=== PATIENT | female | born 1970 | race Caucasian/White ===

== ENCOUNTER 2018-03-12 01:59 | Emergency (ER) | payer OTHER ==
[~2018-03-12] VITALS: Ht 162.6 cm; Wt 70.0 kg
[~2018-03-12 01:59] MED LIST: MULT-658 PO
[2018-03-12 03:12] LABS: BASOPHILS # (AUTO) 0.07 x10^3/uL (0-0.1); BASOPHILS % (AUTO) 1 % (0-1); EOSINOPHILS # (AUTO) 0.29 x10^3/uL (0-0.4); EOSINOPHILS % (AUTO) 6 % (1-7); LYMPHOCYTES # (AUTO) 1.57 x10^3/uL (1-3.4); LYMPHOCYTES % (AUTO) 32 % (22-44); MD NO; MEAN CORPUSCULAR HEMOGLOBIN 28.8 pg (27.0-34.8); MEAN CORPUSCULAR HGB CONC 33.4 g/dL (32.4-35.8); MEAN CORPUSCULAR VOLUME 86.4 fL (80-100); MEAN PLATELET VOLUME 9.6 fL (7.4-10.4); MONOCYTES # (AUTO) 0.48 x10^3/uL (0.2-0.8); MONOCYTES % (AUTO) 10 % (2-9); NEUTROPHILS # (AUTO) 2.54 x10^3/uL (1.8-6.8); NEUTROPHILS % (AUTO) 51 % (42-75); PLATELET COUNT 211 x10^3/uL (130-400); RED BLOOD COUNT 4.57 x10^6/uL (3.82-5.3)
[2018-03-12 03:15] LABS: HCG UR SG 1.032 (1.003-1.030)
[2018-03-12 03:17] LABS: MICROSCOPIC INDICATED
[2018-03-12 03:23] LABS: ALANINE AMINOTRANSFERASE 17 U/L (12-78); ALBUMIN 3.7 g/dL (3.4-5.0); ANION GAP 6 mmol/L (5-15); CALCIUM 8.9 mg/dL (8.5-10.1); CHLORIDE 113 mmol/L (98-107); CREATININE 0.72 mg/dL (0.55-1.02)
[2018-03-12 03:25] LABS: ALKALINE PHOSPHATASE 104 U/L (45-117); BILIRUBIN,TOTAL 0.3 mg/dL (0.2-1.0); TOTAL PROTEIN 6.6 g/dL (6.4-8.2)
[2018-03-12 03:31] LABS: CULTURE INDICATED? NO
[2018-03-12 04:54] VITALS: BP 101/62
== END 2018-03-12 04:57 | disposition home or self-care (01) ==
LOC: ED 04:51
DX: R10.32 Left lower quadrant pain (principal); R31.9 Hematuria, unspecified; R11.0 Nausea; Z90.49 Acquired absence of other specified parts of digestive tract
CPT/HCPCS: 36415; 74176; 76830; 80053; 81001; 81025; 85025; 99285

== ENCOUNTER 2019-09-16 21:21 | Inpatient (IN) | payer BC, OTHER ==
[~2019-09-16] VITALS: Ht 162.6 cm; Wt 81.5 kg
[2019-09-16] MEDS ORDERED: KETOROLAC 30 MG/1 ML IM ONE (21:30)
--- NOTE | 2019-09-16 22:48 | NUR ---
pt to room from lobby
[2019-09-16] MEDS ORDERED: KETOROLAC 60 MG/2 ML ONE (22:50)
[2019-09-16] MEDS ORDERED: HYDROmorphone 1 MG/ML, 1ML INJ IM ONE (23:00)
[2019-09-16] MEDS ORDERED: HYDROmorphone 1 MG/ML, 1ML INJ ONE ×2 (23:00→23:51)
--- NOTE | 2019-09-16 23:20 | NUR ---
Patient presents to ER with low back pain radiating to low abd. Patient states she was helping move dressers today. Afterward, she took a bath and slipped, but did not actually fall, then experienced sudden pain. Patient is in obvious pain. Respirations even and unlabored. Medication admin per oct.
--- NOTE | 2019-09-16 23:28 | NUR ---
Medications admin per oct. MRI checklist completed and faxed.
--- NOTE | 2019-09-16 23:44 | NUR ---
Patient states pain decreased from a 10/10 to an 8/10.
--- NOTE | 2019-09-17 00:22 | NUR ---
Patient to MRI
[2019-09-17] MEDS ORDERED: HYDROmorphone 1 MG/ML, 1ML INJ IV ONE ×4 (01:30→07:00)
[2019-09-17] MEDS ORDERED: methylPREDNISolone SOD SUCC 125 MG/2 ML IVPush SCH (02:00)
[2019-09-17 02:02] LABS: BASOPHILS # (AUTO) 0.04 x10^3/uL (0-0.1); BASOPHILS % (AUTO) 1 % (0-1); EOSINOPHILS # (AUTO) 0.02 x10^3/uL (0-0.4); EOSINOPHILS % (AUTO) 0 % (1-7); LYMPHOCYTES # (AUTO) 1.11 x10^3/uL (1-3.4); LYMPHOCYTES % (AUTO) 15 % (22-44); MD NO; MEAN CORPUSCULAR HEMOGLOBIN 29.3 pg (27.0-34.8); MEAN CORPUSCULAR HGB CONC 33.5 g/dL (32.4-35.8); MEAN CORPUSCULAR VOLUME 87.5 fL (80-100); MEAN PLATELET VOLUME 9.2 fL (7.4-10.4); MONOCYTES # (AUTO) 0.46 x10^3/uL (0.2-0.8); MONOCYTES % (AUTO) 6 % (2-9); NEUTROPHILS # (AUTO) 5.78 x10^3/uL (1.8-6.8); NEUTROPHILS % (AUTO) 78 % (42-75); PLATELET COUNT 216 x10^3/uL (130-400); RED BLOOD COUNT 4.58 x10^6/uL (3.82-5.3); RED CELL DISTRIBUTION WIDTH 14.3 % (9.6-15.2)
[2019-09-17] MEDS ORDERED: HYDROmorphone 1 MG/ML, 1ML INJ ONE ×3 (02:04→09:06)
[2019-09-17] MEDS ORDERED: methylPREDNISolone SOD SUCC 125 MG/2 ML ONE (02:07)
[2019-09-17 02:13] LABS: ANION GAP 5 mmol/L (5-15); CHLORIDE 114 mmol/L (98-107); CREATININE 0.76 mg/dL (0.55-1.02)
--- NOTE | 2019-09-17 02:30 | NUR ---
Patient resting in [facility] with no complaints.
--- NOTE | 2019-09-17 03:40 | NUR ---
Patient sleeping in [facility].
--- NOTE | 2019-09-17 03:40 | NUR ---
Medical bed requested
--- NOTE | 2019-09-17 03:56 | NUR ---
Ice bag given to patient.
--- NOTE | 2019-09-17 07:00 | NUR ---
SBAR RPT REC'D AND PT CARE ASSUMED.
--- NOTE | 2019-09-17 07:46 | NUR ---
PT PAIN 04/06, VSS. DISCUSSED PT ASSESSMENT WITH DR MEADOWS AND HE WILL SEE PT NEXT. PT INFORMED. WATER AT BEDSIDE, CALL LIGHT W/I REACH
--- NOTE | 2019-09-17 08:25 | NUR ---
DR MEADOWS AT BEDSIDE.
[2019-09-17] MEDS ORDERED: POLYETHYLENE GLYCOL 17 GM PACKET PO PRN (08:30)
[2019-09-17] MEDS ORDERED: ACETAMINOPHEN 325 MG TABLET PO PRN (08:30)
[2019-09-17] MEDS ORDERED: hydrALAzine 20 MG/ML, 1ML IVPush PRN (08:30)
[2019-09-17] MEDS ORDERED: BISACODYL 10 MG SUPP PR PRN (08:30)
[2019-09-17] MEDS ORDERED: DOCUSATE 100 MG CAPSULE PO PRN (08:30)
[2019-09-17] MEDS ORDERED: ONDANSETRON 2MG/ML, 2ML IVPush PRN (08:30)
[2019-09-17] MEDS ORDERED: PROMETHAZINE 25 MG/ML, 1ML IM PRN (08:30)
[2019-09-17] MEDS ORDERED: ONDANSETRON ODT 4 MG PO PRN (08:30)
[2019-09-17] MEDS ORDERED: KETOROLAC 30 MG/1 ML IV PRN (08:30)
[2019-09-17] MEDS ORDERED: MEDROL 4MG DOSEPAK PO SCH (09:00)
[2019-09-17] MEDS ORDERED: DOCUSATE 100 MG CAPSULE ONE (09:06)
[2019-09-17] MEDS ORDERED: HEPARIN 5,000 UNITS/ML, 1ML ONE (09:06)
[2019-09-17] MEDS ORDERED: METHOCARBAMOL 500 MG TABLET ONE (09:06)
[2019-09-17] MEDS: HEPARIN 5,000 UNITS/ML, 1ML SQ SCH ×2 (09:26→16:46)
[2019-09-17] MEDS: METHOCARBAMOL 500 MG TABLET PO PRN ×2 (09:26→17:26)
[2019-09-17] MEDS: SODIUM CHLORIDE 0.9% 1,000 ML IV SCH ×2 (09:29→20:41)
--- NOTE | 2019-09-17 10:01 | NUR ---
REPROT RECIEVED FROM CLEVE RAMIREZ. ASSUMED CARE OF PT.
--- NOTE | 2019-09-17 10:04 | NUR ---
LATE ENTRY FOR 929, PT MOVED ONTO HOSPITAL BED WITH RN ASSIST. MED NOTED FOR PAIN. ADMIT POC REVIEWED AND QUESTIONS ANSWERED. ADDITIONAL ICE PACKS PROVIDED. VSS. IVF INFUSING W/O DIFFICULTY PER ORDERS. CALL LIGHT W/I REACH, PTS AT BEDSIDE.
[2019-09-17 10:09] LABS: FREE T4 (FREE THYROXINE) 0.99 ng/dL (0.76-1.46)
[2019-09-17] MEDS: GABAPENTIN 100 MG CAPSULE PO SCH ×3 (10:28→20:35)
[2019-09-17] MEDS ORDERED: HYDROmorphone 2 MG/ML, 1ML ONE (11:42)
[2019-09-17] MEDS: HYDROmorphone 2 MG/ML, 1ML IVPush PRN ×2 (11:52→16:44)
--- NOTE | 2019-09-17 11:52 | NUR ---
PT ASSISTED TO BEDSIDE COMMODE. PT ABLE TO TRANSFER SELF FROM BED TO COMMODE. PT AO X 4. SKIN PWD. RESP EVEN AND UNLABORED. PT MEDICATED ORDERED FOR 02/04 PAIN. PT AWARE WE ARE WAITING FOR ADMISSION. PT DENIES OTHER NEEDS AT THIS TIME. PT ON CONT BP, CARDIAC AND O2 MONITORS. CALL LIGHT WITHIN REACH. WILL CONT TO MONITOR PT.
--- NOTE | 2019-09-17 12:26 | NUR ---
REPORT TO CLEVE DEVI WHO ASSUMED CARE OF PT.
--- NOTE | 2019-09-17 12:37 | NUR ---
Patient is resting comfortably in bed. Vital Signs within normal limits.
[2019-09-17] MEDS ORDERED: KETOROLAC 30 MG/1 ML ONE (13:49)
[2019-09-17] MEDS ORDERED: ACETAMINOPHEN 325 MG TABLET ONE (13:49)
--- NOTE | 2019-09-17 14:00 | NUR ---
PT REPORT ROBERTA POON
[2019-09-17 14:50] VITALS: BP 117/79
[2019-09-17 19:34] LABS: MICROSCOPIC NOT IND
[2019-09-17 19:36] LABS: CULTURE INDICATED? NO
[2019-09-17 20:14] VITALS: BP 101/67
[2019-09-17] MEDS: KETOROLAC 30 MG/1 ML IVPush PRN (22:53)
[2019-09-18] MEDS: HEPARIN 5,000 UNITS/ML, 1ML SQ SCH ×3 (00:30→15:01)
[2019-09-18 01:39] VITALS: BP 100/65
[2019-09-18] MEDS: HYDROmorphone 2 MG/ML, 1ML IVPush PRN ×3 (04:48→20:02)
[2019-09-18 05:46] LABS: BASOPHILS # (AUTO) 0.03 x10^3/uL (0-0.1); BASOPHILS % (AUTO) 0 % (0-1); EOSINOPHILS # (AUTO) 0.02 x10^3/uL (0-0.4); EOSINOPHILS % (AUTO) 0 % (1-7); LYMPHOCYTES # (AUTO) 1.56 x10^3/uL (1-3.4); LYMPHOCYTES % (AUTO) 17 % (22-44); MD NO; MEAN CORPUSCULAR HEMOGLOBIN 29.4 pg (27.0-34.8); MEAN CORPUSCULAR HGB CONC 33.3 g/dL (32.4-35.8); MEAN CORPUSCULAR VOLUME 88.2 fL (80-100); MEAN PLATELET VOLUME 9.3 fL (7.4-10.4); MONOCYTES # (AUTO) 0.62 x10^3/uL (0.2-0.8); MONOCYTES % (AUTO) 7 % (2-9); NEUTROPHILS # (AUTO) 6.81 x10^3/uL (1.8-6.8); NEUTROPHILS % (AUTO) 75 % (42-75); PLATELET COUNT 198 x10^3/uL (130-400); RED BLOOD COUNT 4.32 x10^6/uL (3.82-5.3); RED CELL DISTRIBUTION WIDTH 13.9 % (9.6-15.2)
[2019-09-18 05:51] LABS: ALANINE AMINOTRANSFERASE 22 U/L (12-78); ANION GAP 6 mmol/L (5-15); CALCIUM 8.2 mg/dL (8.5-10.1); CHLORIDE 113 mmol/L (98-107); CHOLESTEROL, TOTAL 186 mg/dL (140-239); CREATININE 0.61 mg/dL (0.55-1.02)
[2019-09-18 05:53] LABS: ALKALINE PHOSPHATASE 82 U/L (45-117); BILIRUBIN,TOTAL 0.4 mg/dL (0.2-1.0); CHOL/HDL RATIO 4.9; HDL CHOLESTEROL (DIRECT) 38 mg/dL (40-60); TRIGLYCERIDES 237 mg/dL (50-200); VLDL CHOLESTEROL 47 mg/dL (0-25)
[2019-09-18 05:54] LABS: HDL CHOL % 20 % (28-40); LDL CHOLESTEROL,CALCULATED 101 mg/dL (54-169); LDL/HDL RATIO 2.7 (0.5-3.0)
[2019-09-18 07:14] VITALS: BP 111/74
[2019-09-18] MEDS: GABAPENTIN 100 MG CAPSULE PO SCH ×2 (07:43→15:00)
[2019-09-18] MEDS: KETOROLAC 30 MG/1 ML IVPush PRN ×2 (07:51→15:01)
[2019-09-18] MEDS ORDERED: ERGOCALCIFEROL 50,000 UNIT CAPSULE PO SCH (09:00)
[2019-09-18] MEDS: METHOCARBAMOL 500 MG TABLET PO PRN (15:01)
[2019-09-18 15:15] VITALS: BP 127/79
[2019-09-18] MEDS: GABAPENTIN 400 MG CAPSULE PO SCH ×2 (16:00→20:02)
[2019-09-18 19:33] VITALS: BP 121/75
[2019-09-19] MEDS: HEPARIN 5,000 UNITS/ML, 1ML SQ SCH ×3 (00:05→16:30)
[2019-09-19] MEDS: METHOCARBAMOL 500 MG TABLET PO PRN (00:45)
[2019-09-19 00:49] VITALS: BP 113/79
[2019-09-19] MEDS: KETOROLAC 30 MG/1 ML IVPush PRN ×3 (03:32→16:52)
[2019-09-19 06:41] VITALS: BP 129/83
[2019-09-19] MEDS: HYDROmorphone 2 MG/ML, 1ML IVPush PRN ×3 (08:14→19:00)
[2019-09-19] MEDS: GABAPENTIN 300 MG CAPSULE PO SCH ×3 (08:15→21:07)
[2019-09-19 12:31] VITALS: BP 112/75
[2019-09-19 16:36] LABS: INTERNATIONAL NORMALIZED RATIO 0.94 (0.93-1.1)
[2019-09-19] MEDS ORDERED: LORazepam 0.5MG TABLET PO PRN (17:30)
[2019-09-19] MEDS ORDERED: MECLIZINE 25 MG TABLET PO PRN (17:30)
[2019-09-19 18:50] VITALS: BP 113/74
[2019-09-20] MEDS: HEPARIN 5,000 UNITS/ML, 1ML SQ SCH ×4 (00:30→21:28)
[2019-09-20 01:13] VITALS: BP 118/66
[2019-09-20] MEDS: HYDROmorphone 2 MG/ML, 1ML IVPush PRN ×6 (02:11→19:56)
[2019-09-20] MEDS ORDERED: VANCOMYCIN PMX 1GM/200ML 200 ML IV ONE (07:00)
[2019-09-20 07:31] VITALS: BP 143/82
[2019-09-20] MEDS: GABAPENTIN 300 MG CAPSULE PO SCH ×3 (08:41→21:54)
[2019-09-20 15:14] VITALS: BP 126/84
[2019-09-20] MEDS ORDERED: BUPIVACAINE/PF 0.5% ONE (15:50)
[2019-09-20] MEDS ORDERED: BACITRACIN 50,000 UNIT ONE (15:50)
[2019-09-20] MEDS ORDERED: EPINEPHRINE 1 MG/ML, 1ML ONE (15:50)
[2019-09-20] MEDS ORDERED: MIDAZOLAM 1 MG/ML, 2ML ONE (16:51)
[2019-09-20] MEDS ORDERED: FENTANYL PF 250 MCG/5ML ONE (16:52)
[2019-09-20] MEDS ORDERED: ROCURONIUM 10MG/ML,5ML ONE (16:56)
[2019-09-20] MEDS ORDERED: PROMETHAZINE 25 MG/ML, 1ML IV PRN (17:00)
[2019-09-20] MEDS ORDERED: hydrALAzine 20 MG/ML, 1ML IV PRN (17:00)
[2019-09-20] MEDS ORDERED: LABETALOL 5MG/ML, 20ML IV PRN (17:00)
[2019-09-20] MEDS ORDERED: MEPERIDINE/PF 25MG/ML,1ML IVPush PRN (17:00)
[2019-09-20] MEDS ORDERED: HALOPERIDOL 5 MG/ML IV PRN (17:00)
[2019-09-20] MEDS ORDERED: FENTANYL PF 100 MCG/2ML IV PRN (17:00)
[2019-09-20] MEDS ORDERED: OXYcodone 5 MG/5 ML ORAL.SOL UDC PO PRN (17:00)
[2019-09-20] MEDS ORDERED: ONDANSETRON 2MG/ML, 2ML ONE (19:07)
[2019-09-20] MEDS ORDERED: PROPOFOL 10 MG/ML, 20ML ONE (19:07)
[2019-09-20] MEDS ORDERED: DEXAMETHASONE 4 MG/ML, 1ML ONE ×2 (19:08)
[2019-09-20] MEDS ORDERED: SUGAMMADEX 200 MG/2 ML IVPush ONE (19:08)
[2019-09-20] MEDS ORDERED: SUCCINYLCHOLINE 20 MG/ML, 10ML ONE (19:08)
[2019-09-20] MEDS ORDERED: HYDROmorphone 1 MG/ML, 1ML INJ ONE (19:41)
[2019-09-20] MEDS ORDERED: MEPERIDINE/PF 25MG/ML,1ML ONE (19:48)
[2019-09-20] MEDS ORDERED: OXYcodone 5 MG/5 ML ORAL.SOL UDC ONE (20:06)
[2019-09-20] MEDS ORDERED: METHOCARBAMOL 1,000 MG in DEXTROSE 5% 100 ML IV ONE (20:30)
[2019-09-20] MEDS ORDERED: D5%-0.9% NACL+KCL 20MEQ 1,000 ML IV SCH (21:30)
[2019-09-20] MEDS ORDERED: MAGNESIUM HYDROXIDE 8%, 30ML UDC PO PRN (21:30)
[2019-09-20] MEDS ORDERED: HYDROmorphone 2 MG/ML, 1ML IM PRN (21:30)
[2019-09-20] MEDS ORDERED: DIPHENHYDRAMINE 50 MG/ML, 1ML IV PRN (21:30)
[2019-09-20] MEDS ORDERED: CEFAZOLIN PMX 1GM/50ML 50 ML IVPB SCH (21:30)
[2019-09-20] MEDS ORDERED: ONDANSETRON 2MG/ML, 2ML IV PRN (21:30)
[2019-09-20] MEDS ORDERED: BISACODYL 10 MG SUPP PR PRN (21:30)
[2019-09-21] MEDS: CEFAZOLIN PMX 1GM/50ML 50 ML IVPB SCH ×2 (01:43→11:49)
[2019-09-21] MEDS: OXYcodone/APAP 5/325MG TABLET PO PRN ×3 (01:45→11:35)
[2019-09-21 01:48] VITALS: BP 109/71
[2019-09-21 04:05] VITALS: BP 100/66
[2019-09-21 06:37] VITALS: BP 110/72
[2019-09-21] MEDS: GABAPENTIN 300 MG CAPSULE PO SCH (08:09)
[2019-09-21] MEDS ORDERED: SENNA/DOCUSATE TABLET PO SCH (09:00)
[2019-09-21] MEDS ORDERED: GABA300C10 PO (10:45)
[2019-09-21] MEDS ORDERED: ERGO500017 PO (10:45)
[2019-09-21] MEDS ORDERED: METH500T7 PO (10:45)
[2019-09-21 12:01] VITALS: BP 102/67
[2019-09-21 13:48] VITALS: BP 114/78
[2019-09-21] MEDS ORDERED: OXYC-302 PO (14:45)
== END 2019-09-21 14:55 | disposition home or self-care (01) | DRG 520 ==
LOC: ED 09-17 00:28 → EDIP 09-17 01:47 → 3N 09-17 13:53 → 4NE 09-20 20:50 → DCLOUNGE 09-21 14:46
PROVIDERS: ADMIT Family Medicine; ATTEND Internal Medicine
PROC: 0SB20ZZ Excision of Lumbar Vertebral Disc, Open Approach (ICD-10-PCS; 2019-09-20)
PROC: 0SB20ZZ Excision of Lumbar Vertebral Disc, Open Approach (ICD-10-PCS; principal; 2019-09-20 17:00)
DX: M51.16 Intervertebral disc disorders with radiculopathy, lumbar region (principal); E55.9 Vitamin D deficiency, unspecified; H93.12 Tinnitus, left ear; M47.26 Other spondylosis with radiculopathy, lumbar region; Z80.0 Family history of malignant neoplasm of digestive organs; Z80.51 Family history of malignant neoplasm of kidney; Z82.49 Family history of ischemic heart disease and other diseases of the circulatory system; Z83.3 Family history of diabetes mellitus; Z90.49 Acquired absence of other specified parts of digestive tract
CPT/HCPCS: 36415; 72100; 72110; 73502; 76000; 96372; 96374; 96375; 96376; 99285; S0020; 72148; 80048; 80053; 80061; 81003; 82306; 82607; 83036; 83735; 84439; 84443; 84702; 85025; 85610; 85730; 88304; 93005; G0378; J0171; J0690; J1100; J1170; J1644; J1885; J2250; J2405; J2704; J3010; J7509; J0330; J2175; J2800; J2930; J7030

== ENCOUNTER → 2019-10-02 | Outpatient (CLI) | payer BC ==
[~2019-10-02] MED LIST changes: +ERGO500017 PO; +GABA300C10 PO; +METH500T7 PO; +OXYC-302 PO
== END | disposition home or self-care (01) ==
LOC: RAD 10:17
PROVIDERS: ATTEND Neurological Surgery
DX: M51.16 Intervertebral disc disorders with radiculopathy, lumbar region (principal); M89.38 Hypertrophy of bone, other site; Z88.1 Allergy status to other antibiotic agents; Z88.5 Allergy status to narcotic agent; Z88.0 Allergy status to penicillin; Z88.6 Allergy status to analgesic agent; Z90.49 Acquired absence of other specified parts of digestive tract
CPT/HCPCS: 72148